=== PATIENT | male | born 1945 | race African-American/Black ===

== ENCOUNTER → 2017-03-07 | Outpatient (CLI) | payer MEDICARE ==
[~2017-03-07] MED LIST: ASPIRIN 32325 MG/TAB PO; BACTRIM DS 8001 TAB PO; VIAGRA 25MG TAB25 MG PO
== END ==
LOC: COL.VAS 13:35
DX: I08.0 Rheumatic disorders of both mitral and aortic valves (principal); I77.810 Thoracic aortic ectasia; R01.1 Cardiac murmur, unspecified

== ENCOUNTER 2017-04-16 13:31 | Outpatient (CLI) | payer MEDICARE ==
[2017-04-16] VITALS (11 sets, daily range): BP systolic 136–159; BP diastolic 80–119; PULSE 42–56
[~2017-04-16] VITALS: Ht 167.7 cm; Wt 65.9 kg
[2017-04-16] MEDS ORDERED: BACTRIM DS 8001 TAB PO (13:52)
[2017-04-16 14:03] LABS: HEMATOCRIT 39.1 % (42.0-52.0); MEAN CELL VOLUME 94 fl (80.0-100.0); MEAN CORPUSCULAR HEMOGLOBIN 34 pg (27.0-31.0); MEAN CORPUSCULAR HGB CONC 36 g/dl (33.0-37.0); MEAN PLATELET VOLUME 10.8 fl (7.4-10.4); PLATELET COUNT 135 K/mm3 (130-400); RED BLOOD COUNT 4.18 M/mm3 (4.20-5.60); REDCELL DISTRIBUTION WIDTH-CV 12.4 % (11.5-14.5); WHITE BLOOD COUNT 5.9 K/mm3 (4.8-10.8)
[2017-04-16] MEDS ORDERED: ASPIRIN 32325 MG/TAB PO (14:06)
[2017-04-16] MEDS ORDERED: VIAGRA 25MG TAB25 MG PO (14:07)
[2017-04-16 14:19] LABS: INR 1.1 (0.8-3.0); PROTHROMBIN TIME 12.1 SECONDS (9.7-12.8)
[2017-04-16 14:20] LABS: CALCIUM 9.3 mg/dL (8.4-10.2); CREATININE, serum 0.99 mg/dL (0.66-1.25); POTASSIUM 4.2 mmol/L (3.4-5.0)
== END 2017-04-16 16:33 | disposition home or self-care (01) ==
LOC: COL.RAD 13:31
PROVIDERS: Internal Medicine Interventional Cardiology
DX: G45.9 Transient cerebral ischemic attack, unspecified (principal); I35.1 Nonrheumatic aortic (valve) insufficiency; I77.810 Thoracic aortic ectasia; I34.0 Nonrheumatic mitral (valve) insufficiency
CPT/HCPCS: Q9967

== ENCOUNTER 2017-09-05 18:05 | Inpatient (IN) | payer BC, MEDICARE ==
[~2017-09-05] VITALS: Ht 170.2 cm; Wt 64.9 kg
[2017-09-05] MEDS ORDERED: ASPIRIN 81M81 MG/TA2 PO (18:18)
[2017-09-05] MEDS ORDERED: LOPRESSOR 225 MG/TAB PO (18:19)
[2017-09-05] MEDS ORDERED: DIOVAN 80MG80 MG PO (18:19)
[2017-09-05 18:50] LABS: BASO % 0.7 % (0.0-2.0); EOS # 0.3 (0.0-0.7); GRAN % 50.3 % (42.2-75.2); HEMATOCRIT 39.7 % (42.0-52.0); HEMOGLOBIN 13.9 g/dl (13.5-18.0); LYMPH # 2.1 (1.2-3.4); LYMPH % 35.6 % (20.0-51.0); MEAN CELL VOLUME 96 fl (80.0-100.0); MEAN CORPUSCULAR HEMOGLOBIN 34 pg (27.0-31.0); MEAN CORPUSCULAR HGB CONC 35 g/dl (33.0-37.0); MEAN PLATELET VOLUME 12.5 fl (7.4-10.4); MONO # 0.5 (0.1-0.6); MONO % 8.2 % (1.7-9.3); PLATELET COUNT 80 K/mm3 (130-400); RED BLOOD COUNT 4.13 M/mm3 (4.20-5.60)
[2017-09-05 18:52] LABS: PROTHROMBIN TIME 12.1 SECONDS (9.7-12.8)
[2017-09-05 18:54] LABS: ADJUSTED CALCIUM 9.3 mg/dL (8.4-10.2); ALBUMIN 4.3 gm/dL (3.5-5.0); BILIRUBIN,TOTAL 0.6 mg/dL (0.0-1.0); CALCIUM 9.5 mg/dL (8.4-10.2); CREATININE, serum 0.94 mg/dL (0.66-1.25); POTASSIUM 4.2 mmol/L (3.4-5.0); TOTAL PROTEIN 7.7 gm/dL (6.4-8.2)
[2017-09-05 18:55] LABS: PARTIAL THROMBOPLASTIN TIME 33.3 SECONDS (26.0-37.0)
[2017-09-05 19:05] LABS: TROPONIN-I 0.02 ng/mL (0.000-0.034)
[2017-09-05 20:29] VITALS: BP 152/95; PULSE 47; TEMP 98.1
[2017-09-05 23:42] VITALS: BP 143/80; PULSE 46; TEMP 97.7
[2017-09-06] VITALS (15 sets, daily range): BP systolic 121–163; BP diastolic 74–117; PULSE 16–56; TEMP 97.5–98.8
[2017-09-06 06:23] LABS: BASO % 0.4 % (0.0-2.0); EOS # 0.3 (0.0-0.7); EOS % 6.1 % (0-4.0); GRAN # 2.8 (1.4-6.5); GRAN % 50.3 % (42.2-75.2); HEMATOCRIT 37.2 % (42.0-52.0); HEMOGLOBIN 13.3 g/dl (13.5-18.0); LYMPH % 34.9 % (20.0-51.0); MEAN CELL VOLUME 95 fl (80.0-100.0); MEAN CORPUSCULAR HEMOGLOBIN 34 pg (27.0-31.0); MEAN CORPUSCULAR HGB CONC 36 g/dl (33.0-37.0); MEAN PLATELET VOLUME 12.1 fl (7.4-10.4); MONO # 0.5 (0.1-0.6); MONO % 8.1 % (1.7-9.3); PLATELET COUNT 92 K/mm3 (130-400); RED BLOOD COUNT 3.93 M/mm3 (4.20-5.60); WHITE BLOOD COUNT 5.6 K/mm3 (4.8-10.8)
[2017-09-06 06:44] LABS: ANION GAP 6 mmol/L (7-16); BLOOD UREA NITROGEN 17 mg/dL (9-20); CALCIUM 8.8 mg/dL (8.4-10.2); CARBON DIOXIDE 28 mmol/L (22-30); CHLORIDE 106 mmol/L (98-107); CREATININE, serum 0.91 mg/dL (0.66-1.25); GLUCOSE 86 mg/dL (74-106); POTASSIUM 3.8 mmol/L (3.4-5.0); SODIUM 140 mmol/L (137-145)
[2017-09-06 06:55] LABS: TROPONIN-I < 0.012 ng/mL (0.000-0.034)
[2017-09-07 00:45] VITALS: BP 118/79; PULSE 53; TEMP 98.6
[2017-09-07 05:45] VITALS: BP 137/40; PULSE 88; TEMP 98.2
[2017-09-07 07:47] VITALS: BP 122/87; PULSE 54; TEMP 98.1
[2017-09-07] MEDS ORDERED: CARDENE 30MG CA30 M1 PO (09:15)
[2017-09-07 11:25] VITALS: BP 119/70; PULSE 69; TEMP 98.3
== END 2017-09-07 13:30 | disposition home or self-care (01) | DRG 287 ==
LOC: COL.ER 18:05 → MEDICAL 19:35
PROVIDERS: Emergency Medicine; Internal Medicine
PROC: B2111ZZ Fluoroscopy of Multiple Coronary Arteries using Low Osmolar Contrast (ICD-10-PCS; principal; 2017-09-06)
PROC: B3101ZZ Fluoroscopy of Thoracic Aorta using Low Osmolar Contrast (ICD-10-PCS; 2017-09-06)
PROC: B2151ZZ Fluoroscopy of Left Heart using Low Osmolar Contrast (ICD-10-PCS; 2017-09-06)
PROC: 4A023N7 Measurement of Cardiac Sampling and Pressure, Left Heart, Percutaneous Approach (ICD-10-PCS; 2017-09-06)
DX: R07.89 Other chest pain (principal); I10 Essential (primary) hypertension; R91.1 Solitary pulmonary nodule; R00.1 Bradycardia, unspecified; I35.1 Nonrheumatic aortic (valve) insufficiency; I71.2 Thoracic aortic aneurysm, without rupture; D69.6 Thrombocytopenia, unspecified
CPT/HCPCS: 99223-AI; 99232-AI; 99239; J1650; J2250; J3010; Q9967

== ENCOUNTER → 2017-10-25 | Outpatient (CLI) | payer MEDICARE ==
[~2017-10-25] MED LIST changes: +ASPIRIN 81M81 MG/TA2 PO; +CARDENE 30MG CA30 M1 PO; +DIOVAN 80MG80 MG PO; +LOPRESSOR 225 MG/TAB PO
== END ==
LOC: COL.RAD 10-03 07:30
DX: Z01.812 Encounter for preprocedural laboratory examination (principal); I65.22 Occlusion and stenosis of left carotid artery; R90.82 White matter disease, unspecified
CPT/HCPCS: A9585

== ENCOUNTER 2018-03-02 21:34 | Emergency (ER) | payer MEDICARE, BC ==
[~2018-03-02] VITALS: Ht 167.6 cm; Wt 62.7 kg
[2018-03-02 21:41] VITALS: TEMP 97.8
[2018-03-02] MEDS ORDERED: DIOVAN 160MG160 MG PO (21:54)
[2018-03-02 21:58] LABS: BASO # 0.1 (0.0-0.2); BASO % 0.5 % (0.0-2.0); EOS # 0.1 (0.0-0.7); EOS % 1.1 % (0-4.0); GRAN # 6.5 (1.4-6.5); GRAN % 61.7 % (42.2-75.2); LYMPH # 3.2 (1.2-3.4); LYMPH % 30.3 % (20.0-51.0); MEAN CELL VOLUME 94 fl (80.0-100.0); MEAN CORPUSCULAR HEMOGLOBIN 33 pg (27.0-31.0); MEAN CORPUSCULAR HGB CONC 35 g/dl (33.0-37.0); MEAN PLATELET VOLUME 11.2 fl (7.4-10.4); MONO # 0.6 (0.1-0.6); PLATELET COUNT 147 K/mm3 (130-400); RED BLOOD COUNT 3.91 M/mm3 (4.20-5.60)
[2018-03-02 22:07] LABS: ALANINE AMINOTRANSFERASE 41 U/L (21-72); ALBUMIN 3.8 gm/dL (3.5-5.0); ALKALINE PHOSPHATASE 87 U/L (50-136); ANION GAP 12 mmol/L (7-16); AST,SGOT 32 U/L (15-37); BILIRUBIN,TOTAL 0.4 mg/dL (0.0-1.0); BLOOD UREA NITROGEN 21 mg/dL (9-20); CALCIUM 9.5 mg/dL (8.4-10.2); CARBON DIOXIDE 29 mmol/L (22-30); CHLORIDE 101 mmol/L (98-107); CREATININE, serum 1.05 mg/dL (0.66-1.25); GLUCOSE 150 mg/dL (74-106); LIPASE 49 U/L (23-300); POTASSIUM 3.5 mmol/L (3.4-5.0); SODIUM 141 mmol/L (137-145); TOTAL PROTEIN 7.4 gm/dL (6.4-8.2)
[2018-03-02 22:11] LABS: HEMATOCRIT 36.8 % (42.0-52.0)
[2018-03-02 22:25] LABS: C-REACTIVE PROTEIN < 0.5 mg/dL (0.0-0.9)
[2018-03-02 22:33] LABS: COLLECTION METHOD CLEAN CATCH
[2018-03-02 22:41] LABS: AMORPHOUS CRYSTAL Present /uL; MUCOUS Present /lpf; PH 8 (5-8); SQUAMOUS EPITHELIAL None Seen /hpf; URINE APPEARANCE Turbid; URINE BACTERIA None Seen /hpf; URINE BILIRUBIN Negative (NEGATIVE); URINE BLOOD Negative (NEGATIVE); URINE COLOR Yellow; URINE GLUCOSE Negative (NEGATIVE); URINE KETONE Negative (NEGATIVE); URINE LEUKOCYTE ESTERASE Negative (NEGATIVE); URINE NITRATE Negative (NEGATIVE); URINE PROTEIN(semi-quant) 1+ (NEGATIVE); URINE RBC 0-2 /hpf; URINE UROBILINOGEN Negative (NEGATIVE)
[2018-03-03 00:02] VITALS: BP 137/87; PULSE 87
== END 2018-03-03 00:20 | disposition home or self-care (01) ==
LOC: COL.ER 21:34
PROVIDERS: Family Medicine
DX: K40.30 Unilateral inguinal hernia, with obstruction, without gangrene, not specified as recurrent (principal); I10 Essential (primary) hypertension; Z79.82 Long term (current) use of aspirin
CPT/HCPCS: J2270; J2550; J7030; Q9967

== ENCOUNTER 2018-03-28 06:28 | Day surgery (SDC) | payer MEDICARE, BC ==
[~2018-03-28] VITALS: Ht 167.6 cm; Wt 63.8 kg
[~2018-03-28 06:28] MED LIST changes: +DIOVAN 160MG160 MG PO
[2018-03-28 07:09] VITALS: BP 106/69; PULSE 64; TEMP 97.5
[2018-03-28] MEDS ORDERED: VIAGRA 25MG TAB25 MG PO (07:14)
[2018-03-28 09:58] VITALS: BP 101/63; PULSE 58; TEMP 97.7
[2018-03-28] MEDS ORDERED: NORCO 325 MG-51 TAB PO (10:09)
[2018-03-28 10:15] VITALS: BP 101/71; PULSE 57
[2018-03-28 10:30] VITALS: BP 113/74; PULSE 49
[2018-03-28 10:45] VITALS: BP 117/75; PULSE 49
[2018-03-28 11:00] VITALS: BP 115/89; PULSE 58
== END 2018-03-28 11:35 | disposition home or self-care (01) ==
LOC: SDCO 06:28
DX: K40.91 Unilateral inguinal hernia, without obstruction or gangrene, recurrent (principal); J45.909 Unspecified asthma, uncomplicated; I10 Essential (primary) hypertension; Z79.82 Long term (current) use of aspirin; Z86.73 Personal history of transient ischemic attack (TIA), and cerebral infarction without residual deficits; Z82.49 Family history of ischemic heart disease and other diseases of the circulatory system
CPT/HCPCS: C1781; J0690; J1885; J2250; J2405; J2704; J2795; J3010; J7120

== ENCOUNTER → 2019-03-04 | Outpatient (CLI) | payer MEDICARE, BC ==
[~2019-03-04] MED LIST changes: +NORCO 325 MG-51 TAB PO
== END ==
LOC: MC.RAD 13:00
DX: N63.20 Unspecified lump in the left breast, unspecified quadrant (principal); N62 Hypertrophy of breast

== ENCOUNTER → 2019-07-16 | Outpatient (CLI) | payer MEDICARE, BC | LOC: COL.RAD 10:11 | DX: Z01.812 Encounter for preprocedural laboratory examination (principal); I71.2 Thoracic aortic aneurysm, without rupture | CPT/HCPCS: Q9967 ==

== ENCOUNTER → 2019-08-17 | Outpatient (CLI) | payer MEDICARE, BC | LOC: COL.CARD 08-13 13:00 | DX: R00.1 Bradycardia, unspecified (principal) ==

== ENCOUNTER → 2020-03-31 | Outpatient (CLI) | payer MEDICARE, BC ==
[~2020-03-31] MED LIST changes: +COZAAR100 MG PO; +HCTZ12.5TAB PO; +LAMISIL250 M1 PO; +NITROSTAT0.4 MG/TAB SL; +TOPROL XL 50MG50 MG PO; +TYLENOL 325MG325 MG PO
[2020-03-31 11:40] LABS: HEMOGLOBIN 12.9 g/dl (13.5-18.0); MEAN CELL VOLUME 93 fl (80.0-100.0); MEAN CORPUSCULAR HEMOGLOBIN 32 pg (27.0-31.0); MEAN CORPUSCULAR HGB CONC 35 g/dl (33.0-37.0); PLATELET COUNT 69 K/mm3 (130-400); RED BLOOD COUNT 3.99 M/mm3 (4.20-5.60); REDCELL DISTRIBUTION WIDTH-CV 13.9 % (11.5-14.5)
[2020-03-31 11:49] LABS: CALCIUM 9.4 mg/dL (8.4-10.2); CREATININE, serum 0.84 (0.66-1.25)
== END ==
LOC: COL.LAB 07:05
PROVIDERS: Internal Medicine Interventional Cardiology
DX: Z01.84 Encounter for antibody response examination (principal); I71.2 Thoracic aortic aneurysm, without rupture; I72.3 Aneurysm of iliac artery; Z20.828 Contact with and (suspected) exposure to other viral communicable diseases

== ENCOUNTER → 2020-07-07 | Outpatient (CLI) | payer MEDICARE, BC | LOC: COL.RAD 14:22 | DX: Z01.812 Encounter for preprocedural laboratory examination (principal); I72.3 Aneurysm of iliac artery; I25.10 Atherosclerotic heart disease of native coronary artery without angina pectoris | CPT/HCPCS: Q9967 ==

== ENCOUNTER 2021-07-12 06:14 | Day surgery (SDC) | payer MEDICARE, BC ==
[~2021-07-12] VITALS: Ht 170.2 cm; Wt 60.3 kg
[~2021-07-12 06:14] MED LIST changes: +PRILOSEC 20MG20 MG PO
[2021-07-12] MEDS ORDERED: COZAAR 50MG50 MG/TAB PO (07:27)
[2021-07-12] MEDS ORDERED: ELIQUIS 5MG PO (07:27)
[2021-07-12] MEDS ORDERED: OSCAL 500 TAB500 MG PO (07:27)
[2021-07-12 07:28] LABS: INR 1.4 (0.8-3.0); PROTHROMBIN TIME 15.4 SECONDS (9.7-12.8)
[2021-07-12] MEDS ORDERED: NAPROSYN 2250 MG/TAB PO (07:29)
[2021-07-12 07:51] VITALS: BP 136/102; PULSE 76; TEMP 98.7
[2021-07-12 07:52] LABS: THYROID STIMULATING HORMONE 3.309 uIU/mL (0.350-4.940)
[2021-07-12] MEDS ORDERED: TOPROL XL 25MG25 MG PO (08:17)
[2021-07-12 08:40] VITALS: BP 111/78; PULSE 56
[2021-07-12 09:00] VITALS: BP 127/87; PULSE 52
[2021-07-12 09:15] VITALS: BP 137/105; PULSE 61
[2021-07-12 09:30] VITALS: BP 127/104; PULSE 53
[2021-07-12 09:45] VITALS: BP 132/89; PULSE 55
--- NOTE | 2021-07-12 10:30 | NUR ---
Discharge instructions given to pt.Pt verbalizes understanding.INT removed,catheter tip intact.Pt escorted out via wheelchair by this nurse.
== END 2021-07-12 10:50 ==
LOC: COL.CAR 06:14
PROVIDERS: Internal Medicine Cardiovascular Disease
DX: I48.0 Paroxysmal atrial fibrillation (principal); I10 Essential (primary) hypertension; Z79.01 Long term (current) use of anticoagulants; Z79.899 Other long term (current) drug therapy; K21.9 Gastro-esophageal reflux disease without esophagitis
CPT/HCPCS: J2704; J7030

== ENCOUNTER → 2021-08-15 | Outpatient (CLI) | payer MEDICARE, BC ==
[~2021-08-15] MED LIST changes: +COZAAR 50MG50 MG/TAB PO; +ELIQUIS 5MG PO; +NAPROSYN 2250 MG/TAB PO; +OSCAL 500 TAB500 MG PO; +TOPROL XL 25MG25 MG PO
[2021-08-15 10:17] LABS: CREATININE, serum 0.88 mg/dL (0.72-1.25)
[2021-08-15 10:38] LABS: THYROID STIMULATING HORMONE 3.269 uIU/mL (0.350-4.940)
== END ==
LOC: COL.LAB 09:40
PROVIDERS: Psychiatry & Neurology Neurology
DX: E53.9 Vitamin B deficiency, unspecified (principal); R41.3 Other amnesia

== ENCOUNTER → 2021-08-21 | Outpatient (CLI) | payer MEDICARE, BC | LOC: COL.RAD 08-15 10:00 | DX: G31.84 Mild cognitive impairment of uncertain or unknown etiology (principal); R90.82 White matter disease, unspecified | CPT/HCPCS: Q9967 ==

== ENCOUNTER 2022-03-17 16:06 | Inpatient (IN) | payer MEDICARE, BC ==
[~2022-03-17] VITALS: Ht 167.6 cm; Wt 58.1 kg
[2022-03-17 16:40] LABS: BASO % 0.3 % (0.0-2.0); GRAN # 5.4 K/mm3 (1.4-6.5); GRAN % 75.5 % (42.2-75.2); HEMATOCRIT 44.7 % (42.0-52.0); LYMPH % 14.6 % (20.0-51.0); MEAN CELL VOLUME 95 fl (80.0-100.0); MEAN CORPUSCULAR HEMOGLOBIN 34 pg (27-31); MEAN CORPUSCULAR HGB CONC 36 g/dl (33.0-37.0); MONO # 0.7 K/mm3 (0.1-0.6); MONO % 9.3 % (1.7-9.3); RED BLOOD COUNT 4.69 M/mm3 (4.20-5.60); REDCELL DISTRIBUTION WIDTH-CV 12.5 % (11.5-14.5)
[2022-03-17 16:49] LABS: INR 1.3 (0.8-3.0); PROTHROMBIN TIME 15.5 SECONDS (9.7-12.8)
[2022-03-17 16:51] LABS: PARTIAL THROMBOPLASTIN TIME 34.4 SECONDS (26.0-37.0)
[2022-03-17 16:54] LABS: ALBUMIN 3.9 gm/dL (3.4-4.8); CALCIUM 9.6 mg/dL (8.4-10.2); CREATININE, serum 1.13 mg/dL (0.72-1.25); PLATELET COUNT 94 K/mm3 (130-400); POTASSIUM 3.9 mmol/L (3.5-4.5); TOTAL PROTEIN 8.2 gm/dL (6.2-8.1)
[2022-03-17 16:59] LABS: TROPONIN-I 0.01 ng/mL (0.00-0.033)
[2022-03-17] MEDS ORDERED: ASPIRIN E.C. 8181 MG PO (21:58)
[2022-03-17 22:04] VITALS: BP 128/80; PULSE 67; TEMP 98.6
--- NOTE | 2022-03-17 23:18 | NUR ---
PATIENT ARRIVED TO 306 CONTACT/ AIRBORN ISOLATION ROOM AROUND 1999 ORIENTED TO ROOM AND LIMITATION ON VISITORS. PATIENT COVID POSITIVE EDUCATED ON NEW ANTIBIOTIC THERAPY AND LOVENOX. NO S/S OF BLEEDING NOTED. PATIENT INDEPENDENT IN ROOM. CURRENLTY ON RA TOLERATING WELL 02SAT 94%. PATIENT DOES HAVE SLIGHT SOB WITH AMBULATING TO AND FROM BR. CONTINUING ON BOWEL AND BLADDER. PATIENT PENDIGN REMDESIVIR DUE TO PATIENT BEING PRESCRIBED PAXLOVID. MEDICATION TO BE CLARIFIED IN AM. PATIENT IS SLIGHTLY DROWSY HAS GREAT APPETITE FOR DINNER. LUNG SOUND COARSE CRACKLES THROUGHOUT WITH EXPIRAOTRY WHEEZING. ENCOURAGING PATIENT TO SIT UP FOR MEALS, DEEP BREATHING EXERCISES, AND LYING IN PRONE POSITION TOLERATED. WILL CONTNIUE TO MONITOR FOR ANY CHANGES.
[2022-03-18] VITALS (7 sets, daily range): BP systolic 124–140; BP diastolic 70–95; PULSE 55–72; TEMP 97.1–98.3
[2022-03-18 06:10] LABS: HEMATOCRIT 42.1 % (42.0-52.0); HEMOGLOBIN 15.2 g/dl (13.5-18.0); MEAN CELL VOLUME 94 fl (80.0-100.0); MEAN CORPUSCULAR HEMOGLOBIN 34 pg (27-31); MEAN CORPUSCULAR HGB CONC 36 g/dl (33.0-37.0); RED BLOOD COUNT 4.49 M/mm3 (4.20-5.60); REDCELL DISTRIBUTION WIDTH-CV 12.4 % (11.5-14.5)
[2022-03-18 06:28] LABS: ALBUMIN 3.4 gm/dL (3.4-4.8); BILIRUBIN,TOTAL 0.6 mg/dL (0.2-1.2); CALCIUM 9.6 mg/dL (8.4-10.2); CREATININE, serum 1.06 mg/dL (0.72-1.25); POTASSIUM 4.6 mmol/L (3.5-4.5); TOTAL PROTEIN 7.4 gm/dL (6.2-8.1)
[2022-03-18 06:41] LABS: PLATELET COUNT 47 K/mm3 (130-400)
[2022-03-18 06:49] LABS: LYMPHOCYTE 16 % (20.0-51.0)
[2022-03-18 06:50] LABS: PLATELET ESTIMATE DECREASED (NORMAL)
[2022-03-18 06:56] LABS: BAND 34 % (0-10); METAMYELOCYTE 0 % (0-0); MYELOCYTE 0 % (0-0); NEUTROPHILS 43 % (42.0-75.2)
--- NOTE | 2022-03-18 07:14 | NUR ---
RECEIVED PATIENT REPORT FROM COLE [facility]WAL[facility]. PATIENT WAS ADMITTED LAST NIGHT FOR COVID. RECEIVING ANTIBIOTICS. HAS ONE INT SITE. PATIENT IS ON ROOM AIR, INDEPENDENT AND ONLY COMPLAINS OF COUGH. WILL ADDRESS WITH DOCTOR.
--- NOTE | 2022-03-18 07:23 | NUR ---
got a hold of jayjay regarding the critical platelet value. orders received
[2022-03-18 07:32] LABS: MAGNESIUM 2.1 mg/dL (1.6-2.6); PHOSPHOROUS 2.6 mg/dL (2.3-4.7)
--- NOTE | 2022-03-18 15:41 | NUR ---
SW complete intake via phone. Pt lives at home, alone (). Pt NK is his son, carmine [phone]. Pt is independent on all ADLs and does not use any DME.PCP is Dorian Mendosa and gets medications from [facility] and no trouble with cost. Not interested in [facility]. DC: Home
[2022-03-19 04:05] VITALS: BP 132/78; PULSE 59; TEMP 98.2
[2022-03-19 07:00] VITALS: BP 129/87; PULSE 64; TEMP 97.3
[2022-03-19 07:00] LABS: HEMOGLOBIN 14.5 g/dl (13.5-18.0); MEAN CELL VOLUME 95 fl (80.0-100.0); MEAN CORPUSCULAR HEMOGLOBIN 34 pg (27-31); MEAN CORPUSCULAR HGB CONC 36 g/dl (33.0-37.0); PLATELET COUNT 65 K/mm3 (130-400); RED BLOOD COUNT 4.22 M/mm3 (4.20-5.60); REDCELL DISTRIBUTION WIDTH-CV 12.4 % (11.5-14.5)
[2022-03-19 07:20] LABS: ALBUMIN 3.3 gm/dL (3.4-4.8); CALCIUM 9.3 mg/dL (8.4-10.2); CREATININE, serum 0.91 mg/dL (0.72-1.25); MAGNESIUM 1.9 mg/dL (1.6-2.6); PHOSPHOROUS 3.1 mg/dL (2.3-4.7); POTASSIUM 4.5 mmol/L (3.5-4.5)
--- NOTE | 2022-03-19 08:01 | NUR ---
Patient laying in bed, A&Ox4. VSS. IV CDI. Denies pain and discomfort. Droplet/contact precautions in place. Call light within reach
[2022-03-19 08:22] VITALS: BP 137/85; PULSE 60; TEMP 98.1
[2022-03-19] MEDS ORDERED: RT Albuterol HFA MDI IH (09:15)
[2022-03-19] MEDS ORDERED: DOXYCYCLINE 10100 MG PO (09:15)
[2022-03-19] MEDS ORDERED: DECADRON 4MG TAB4 MG PO (09:16)
[2022-03-19] MEDS ORDERED: ARICEPT10 MG PO (09:21)
[2022-03-19 09:30] LABS: BAND 5 % (0-10); LYMPHOCYTE 12 % (20.0-51.0); NEUTROPHILS 76 % (42.0-75.2); PLATELET ESTIMATE DECREASED (NORMAL)
[2022-03-19] MEDS ORDERED: TESSALON P100 MG/CAP PO (09:31)
--- NOTE | 2022-03-19 10:00 | NUR ---
Discharge paperwork reviewed with the patient. Patient verbalized an understanding to follow doctors orders. IV removed, tip intact. Patient calling for a ride. Droplet/contact precautions in place. Call light within reach
--- NOTE | 2022-03-19 12:43 | NUR ---
Patient taken by wheelchair to awaiting vehicle. No further needs expressed.
== END 2022-03-19 12:03 | disposition home or self-care (01) | DRG 177 ==
LOC: COL.ER 16:06 → MEDICAL 16:58
PROVIDERS: Emergency Medicine; Surgery; ADMIT Internal Medicine
DX: U07.1 COVID-19 (principal); J96.01 Acute respiratory failure with hypoxia; J12.82 Pneumonia due to coronavirus disease 2019; I10 Essential (primary) hypertension; K21.9 Gastro-esophageal reflux disease without esophagitis; D69.6 Thrombocytopenia, unspecified; I25.10 Atherosclerotic heart disease of native coronary artery without angina pectoris; I48.91 Unspecified atrial fibrillation; Z79.01 Long term (current) use of anticoagulants; Z79.82 Long term (current) use of aspirin; Z23 Encounter for immunization
CPT/HCPCS: 99223-AI; 99232-AI; J0696; J1100; J1650

== ENCOUNTER → 2022-06-18 | Outpatient (CLI) | payer MEDICARE, BC ==
[~2022-06-18] MED LIST changes: +ARICEPT10 MG PO; +ASPIRIN E.C. 8181 MG PO; +DECADRON 4MG TAB4 MG PO; +DOXYCYCLINE 10100 MG PO; +RT Albuterol HFA MDI IH; +TESSALON P100 MG/CAP PO
== END ==
LOC: MC.RAD 13:56
DX: N62 Hypertrophy of breast (principal)

== ENCOUNTER 2022-10-20 14:05 | Emergency (ER) | payer MEDICARE, BC ==
[~2022-10-20] VITALS: Ht 170.2 cm; Wt 61.4 kg
[2022-10-20 14:08] VITALS: TEMP 97.2
[2022-10-20 15:38] LABS: BASO % 0.4 % (0.0-2.0); EOS # 0.1 K/mm3 (0.0-0.7); EOS % 2.2 % (0.0-4.0); GRAN # 3.2 K/mm3 (1.4-6.5); GRAN % 65.2 % (42.2-75.2); HEMOGLOBIN 14.7 g/dl (13.5-18.0); LYMPH # 1.3 K/mm3 (1.2-3.4); LYMPH % 25.6 % (20.0-51.0); MEAN CELL VOLUME 96 fl (80.0-100.0); MEAN CORPUSCULAR HEMOGLOBIN 34 pg (27-31); MEAN CORPUSCULAR HGB CONC 35 g/dl (33.0-37.0); MEAN PLATELET VOLUME 10.9 fl (7.4-10.4); MONO # 0.3 K/mm3 (0.1-0.6); MONO % 6.4 % (1.7-9.3); PLATELET COUNT 156 K/mm3 (130-400); RED BLOOD COUNT 4.38 M/mm3 (4.20-5.60); REDCELL DISTRIBUTION WIDTH-CV 12.3 % (11.5-14.5)
[2022-10-20 15:44] LABS: INR 1.2 (0.8-3.0); PROTHROMBIN TIME 13.9 SECONDS (9.7-12.8)
[2022-10-20 15:56] LABS: ALBUMIN 3.8 gm/dL (3.4-4.8); BILIRUBIN,TOTAL 0.7 mg/dL (0.2-1.2); CALCIUM 9.4 mg/dL (8.4-10.2); CREATININE, serum 0.95 mg/dL (0.72-1.25); POTASSIUM 3.8 mmol/L (3.5-4.5); TOTAL PROTEIN 7.8 gm/dL (6.2-8.1)
[2022-10-20] MEDS ORDERED: PLAVIX 75MG TAB75 MG PO ×3 (17:20→17:53)
[2022-10-20] MEDS ORDERED: ANTIVERT 25MG25 MG PO (17:20)
[2022-10-20 17:42] VITALS: BP 153/99; PULSE 52
== END 2022-10-20 17:55 | disposition home or self-care (01) ==
LOC: COL.ER 14:05
PROVIDERS: Personal Emergency Response Attendant
DX: R42 Dizziness and giddiness (principal); I77.71 Dissection of carotid artery
CPT/HCPCS: J2550; Q9967

== ENCOUNTER 2023-09-22 18:39 | Emergency (ER) | payer MEDICARE, BC ==
[~2023-09-22] VITALS: Ht 167.6 cm; Wt 61.4 kg
[~2023-09-22 18:39] MED LIST changes: +ANTIVERT 25MG25 MG PO; +PLAVIX 75MG TAB75 MG PO
[2023-09-22 18:40] VITALS: TEMP 97.7
[2023-09-22 19:24] VITALS: BP 149/92; PULSE 63
== END 2023-09-22 19:45 | disposition home or self-care (01) ==
LOC: COL.ER 18:39
DX: S70.312A Abrasion, left thigh, initial encounter (principal); S99.921A Unspecified injury of right foot, initial encounter; V83.4XXA Person injured while boarding or alighting from special industrial vehicle, initial encounter; Y92.830 Public park as the place of occurrence of the external cause

== ENCOUNTER 2024-07-05 09:57 | Emergency (ER) | payer MEDICARE, BC ==
[~2024-07-05] VITALS: Ht 170.2 cm; Wt 63.6 kg
[2024-07-05 10:13] VITALS: TEMP 97.9
[2024-07-05 11:34] VITALS: BP 175/92; PULSE 49
== END 2024-07-05 11:34 | disposition home or self-care (01) ==
LOC: COL.ER 09:57
DX: M19.041 Primary osteoarthritis, right hand (principal)